=== PATIENT | male | born 1995 | race Caucasian/White ===

== ENCOUNTER 2020-08-29 10:18 | Emergency (ER) | payer OTHER ==
[2020-08-29 10:35] VITALS: BMI 26.1
[2020-08-29] MEDS ORDERED: SODIUM CHLORIDE 1,000 ML IV STA ×2 (11:32→13:00)
[2020-08-29 12:24] LABS: BASO % 0.6 % (0-2.0); EOS % 0.5 % (0-4.5); HEMATOCRIT 48.2 % (35.4-49); HEMOGLOBIN 16.6 GM/dL (11.7-16.9); LYMPH % 12.6 % (8-40); MCH 29.4 pg (25.7-33.7); MCHC 34.3 g/dl (32.0-35.9); MEAN CELL VOLUME 85.7 fl (80-96); MEAN PLT VOLUME 9.8 fl (7.5-11.1); MONO % 13.7 % (3.8-10.2); NEUT % 72.6 % (42.8-82.8); PLATELET COUNT 172 K/MM3 (134-434); RBC 5.63 M/mm3 (4.00-5.60); RDW 12.4 % (11.9-15.9); WHITE BLOOD COUNT 7.5 K/mm3 (4.0-10.0)
[2020-08-29 12:25] LABS: URINE APPEARANCE CLEAR; URINE BILIRUBIN NEGATIVE (NEGATIVE); URINE COLOR YELLOW; URINE GLUCOSE (UA) 3+ (NEGATIVE); URINE KETONE 1+ (NEGATIVE); URINE LEUK ESTERASE NEGATIVE (NEGATIVE); URINE NITRITE NEGATIVE (NEGATIVE); URINE PROTEIN NEGATIVE (NEGATIVE); URINE UROBILINOGEN 0.2 mg/dL (0.2-1.0)
[2020-08-29 12:45] LABS: POTASSIUM 4.3 mmol/L (3.5-5.1)
[2020-08-29 12:47] LABS: ALBUMIN 4.3 g/dl (3.4-5.0); CALCIUM 10.3 mg/dL (8.5-10.1)
[2020-08-29 12:51] LABS: CREATININE 0.9 mg/dL (0.55-1.3)
[2020-08-29 12:52] LABS: BILIRUBIN,TOTAL 0.9 mg/dL (0.2-1); TOT PROT 8.8 g/dl (6.4-8.2)
[2020-08-29] MEDS ORDERED: INSULIN (NOVOLOG) ASPART 100 UNITS/ML 10ML VIAL SQ ONE (13:00)
[2020-08-29] MEDS ORDERED: BAMLANIVIMAB 700 MG, ETESEVIMAB 1,400 MG in SODIUM CHLORIDE 250 ML IVPB ONE (13:14)
[2020-08-29 16:00] VITALS: BP 117/78; PULSE 98; TEMP 97.4
== END 2020-08-29 15:58 | disposition home or self-care (01) ==
LOC: JER 10:18
PROC: 3E033GC Introduction of Other Therapeutic Substance into Peripheral Vein, Percutaneous Approach (ICD-10-PCS; principal; 2020-08-29)
PROC: 3E023GC Introduction of Other Therapeutic Substance into Muscle, Percutaneous Approach (ICD-10-PCS; principal; 2020-08-29)
PROC: 3E0337Z Introduction of Electrolytic and Water Balance Substance into Peripheral Vein, Percutaneous Approach (ICD-10-PCS; principal; 2020-08-29)
DX: U07.1 COVID-19 (principal)
CPT/HCPCS: 36415; 80053; 81003; 82010; 82962; 83605; 85025; 99284-25; M0239; Q0239; Q0245

== ENCOUNTER 2021-05-27 19:54 | Emergency (ER) | payer OTHER ==
[2021-05-27 20:33] VITALS: BP 133/82; PULSE 102; TEMP 97.6; BMI 26.7
[2021-05-27] MEDS ORDERED: ACETAMINOPHEN 1000 MG/100 ML VIAL IVPB ONE (21:08)
[2021-05-27] MEDS ORDERED: LACTATED RINGERS SOLUTION 1000 ML INFUS.BAG IV ONE ×2 (21:08→22:49)
[2021-05-27] MEDS ORDERED: ONDANSETRON 4 MG/2 ML VIAL IVPUSH ONE (21:08)
[2021-05-27] MEDS ORDERED: ACETAMINOPHEN INJECTION 100 ML IVPB ONE (21:20)
[2021-05-27] MEDS ORDERED: ONDANSETRON 4 MG/2 ML VIAL ONE (21:21)
[2021-05-27 21:54] LABS: BASO % 0.2 % (0-2.0); EOS % 0.1 % (0-4.5); HEMATOCRIT 46.5 % (35.4-49); LYMPH % 4.9 % (8-40); MCH 29.1 pg (25.7-33.7); MCHC 34.4 g/dl (32.0-35.9); MEAN CELL VOLUME 84.8 fl (80-96); MEAN PLT VOLUME 10.7 fl (7.5-11.1); MONO % 9.9 % (3.8-10.2); NEUT % 84.9 % (42.8-82.8); PLATELET COUNT 210 10^3/uL (134-434); RBC 5.48 M/mm3 (4.00-5.60); RDW 12.6 % (11.9-15.9); WHITE BLOOD COUNT 18.1 K/mm3 (4.0-10.0)
[2021-05-27 22:00] LABS: BLOOD UREA NITROGEN 22.1 mg/dL (7-18); CALCIUM 9.4 mg/dL (8.5-10.1)
[2021-05-27 22:03] LABS: CREATININE 0.8 mg/dL (0.55-1.3)
[2021-05-27 22:05] LABS: TOT PROT 7.9 g/dl (6.4-8.2)
[2021-05-28] MEDS ORDERED: FAMOTIDINE 10 MG TABLET PO ONE (00:55)
[2021-05-28] MEDS ORDERED: SUCRALFATE 1 GM TABLET (FP) PO ONE (00:55)
[2021-05-28] MEDS ORDERED: MAG HYDROX/AL HYDROX/SIMETH 30 ML UNIT-DOSE CUP PO ONE (00:55)
[2021-05-28] MEDS ORDERED: FAMOTIDINE 10 MG TABLET ONE (01:00)
[2021-05-28] MEDS ORDERED: SUCRALFATE 1 GM TABLET (FP) ONE (01:01)
[2021-05-28] MEDS ORDERED: MAG HYDROX/AL HYDROX/SIMETH 30 ML UNIT-DOSE CUP ONE (01:01)
[2021-05-28 02:22] LABS: VENOUS BASE EXCESS 1.9 mmol/L (-2-2); VENOUS O2 SATURATION 90.6 % (70-80); VENOUS PCO2 44.7 mmHg (38-52); VENOUS PH 7.402 (7.310-7.410)
== END 2021-05-28 02:47 | disposition home or self-care (01) ==
LOC: JER 19:54
PROC: 3E033GC Introduction of Other Therapeutic Substance into Peripheral Vein, Percutaneous Approach (ICD-10-PCS; principal; 2021-05-27)
DX: R11.2 Nausea with vomiting, unspecified (principal)
CPT/HCPCS: 36415; 80053; 82010; 82803; 85025; 87804; 96374; 96375; 99284-25; C9803; J0131; U0003; U0005

== ENCOUNTER 2021-05-28 23:11 | Inpatient (IN) | payer OTHER ==
[2021-05-29] MEDS ORDERED: LACTATED RINGERS SOLUTION 1000 ML INFUS.BAG IV ONE ×2 (00:40→02:16)
[2021-05-29] MEDS ORDERED: ACETAMINOPHEN 1000 MG/100 ML VIAL IVPB ONE (00:40)
[2021-05-29] MEDS ORDERED: METOCLOPRAMIDE HCL INJECTION 10 MG/2 ML VIAL IVPUSH ONE (00:40)
[2021-05-29] MEDS ORDERED: FAMOTIDINE 20 MG/50 ML IVPB 50 ML IVPB ONE (00:40)
[2021-05-29] MEDS ORDERED: METOCLOPRAMIDE HCL INJECTION 10 MG/2 ML VIAL ONE (00:49)
[2021-05-29] MEDS ORDERED: ACETAMINOPHEN INJECTION 100 ML IVPB ONE (00:49)
[2021-05-29 00:55] LABS: BASO % 0.5 % (0-2.0); HEMOGLOBIN 15.6 GM/dL (11.7-16.9); LYMPH % 8.8 % (8-40); MCH 28.7 pg (25.7-33.7); MCHC 33.9 g/dl (32.0-35.9); MEAN CELL VOLUME 84.6 fl (80-96); MEAN PLT VOLUME 9.8 fl (7.5-11.1); MONO % 19.2 % (3.8-10.2); NEUT % 71.5 % (42.8-82.8); PLATELET COUNT 207 10^3/uL (134-434); RBC 5.44 M/mm3 (4.00-5.60); RDW 12.4 % (11.9-15.9); WHITE BLOOD COUNT 9.8 K/mm3 (4.0-10.0)
[2021-05-29 01:15] LABS: CALCIUM 9.1 mg/dL (8.5-10.1)
[2021-05-29 01:16] LABS: ALBUMIN 3.7 g/dl (3.4-5.0)
[2021-05-29 01:18] LABS: CREATININE 0.9 mg/dL (0.55-1.3)
[2021-05-29 01:20] LABS: BILIRUBIN,TOTAL 4.1 mg/dL (0.2-1); TOT PROT 7.6 g/dl (6.4-8.2)
[2021-05-29] MEDS ORDERED: FAMOTIDINE/PF 20 MG/2 ML VIAL IVPB ONE (01:30)
[2021-05-29] MEDS ORDERED: FAMOTIDINE 20 MG/50 ML IVPB 20 MG/50 ML MG IVPB ONE (01:44)
[2021-05-29 02:32] LABS: URINE APPEARANCE CLEAR; URINE BILIRUBIN NEGATIVE (NEGATIVE); URINE COLOR YELLOW; URINE GLUCOSE (UA) 3+ (NEGATIVE); URINE KETONE 4+ (NEGATIVE); URINE LEUK ESTERASE NEGATIVE (NEGATIVE); URINE NITRITE NEGATIVE (NEGATIVE); URINE PROTEIN TRACE (NEGATIVE); URINE UROBILINOGEN 0.2 mg/dL (0.2-1.0)
[2021-05-29] MEDS ORDERED: INSULIN REGULAR HUMAN 100 UNITS/ML *VIAL IVPUSH ONE (04:01)
[2021-05-29] MEDS: SODIUM CHLORIDE 1,000 ML IV SCH (04:39)
[2021-05-29 05:29] LABS: INR 1.24 (0.83-1.09); PROTHROMBIN TIME (PATIENT) 14.5 SEC (9.7-13.0)
[2021-05-29 05:32] LABS: ACTIVATED PTT 21.8 SECONDS (25.2-36.5)
[2021-05-29 07:23] LABS: BILIRUBIN,DIRECT 0.5 mg/dL (0.0-0.2)
[2021-05-29] MEDS: INSULIN SLIDING SCALE (NOVOLOG) 1 VIAL SQ SCH ×4 (07:50→21:12)
[2021-05-29 07:56] LABS: BLOOD UREA NITROGEN 21.5 mg/dL (7-18); CALCIUM 8.1 mg/dL (8.5-10.1)
[2021-05-29 07:57] LABS: ALBUMIN 3.4 g/dl (3.4-5.0)
[2021-05-29 08:00] LABS: CREATININE 0.6 mg/dL (0.55-1.3)
[2021-05-29 08:01] LABS: BILIRUBIN,TOTAL 3.6 mg/dL (0.2-1); TOT PROT 6.8 g/dl (6.4-8.2)
[2021-05-29 08:25] LABS: BASO % 0.5 % (0-2.0); EOS % 0.2 % (0-4.5); HEMATOCRIT 42.2 % (35.4-49); HEMOGLOBIN 14.6 GM/dL (11.7-16.9); LYMPH % 8.8 % (8-40); MCH 29.2 pg (25.7-33.7); MCHC 34.5 g/dl (32.0-35.9); MEAN CELL VOLUME 84.5 fl (80-96); MEAN PLT VOLUME 10.3 fl (7.5-11.1); MONO % 18.8 % (3.8-10.2); NEUT % 71.7 % (42.8-82.8); PLATELET COUNT 188 10^3/uL (134-434); RBC 4.99 M/mm3 (4.00-5.60); RDW 12.4 % (11.9-15.9); WHITE BLOOD COUNT 9.8 K/mm3 (4.0-10.0)
[2021-05-29 11:46] VITALS: BMI 26.5
[2021-05-30] MEDS: SODIUM CHLORIDE 1,000 ML IV SCH ×2 (04:40→14:35)
[2021-05-30] MEDS: INSULIN SLIDING SCALE (NOVOLOG) 1 VIAL SQ SCH ×4 (07:09→21:11)
[2021-05-30 10:31] LABS: HEMATOCRIT 42.6 % (35.4-49); HEMOGLOBIN 14.4 GM/dL (11.7-16.9); MCH 28.7 pg (25.7-33.7); MCHC 33.7 g/dl (32.0-35.9); MEAN PLT VOLUME 9.8 fl (7.5-11.1); PLATELET COUNT 197 10^3/uL (134-434); RBC 5.01 M/mm3 (4.00-5.60); RDW 12.1 % (11.9-15.9); WHITE BLOOD COUNT 7.4 K/mm3 (4.0-10.0)
[2021-05-30 10:57] LABS: CALCIUM 8.5 mg/dL (8.5-10.1)
[2021-05-30 10:58] LABS: BLOOD UREA NITROGEN 16.6 mg/dL (7-18); MAGNESIUM 2.4 mg/dL (1.8-2.4)
[2021-05-30 11:01] LABS: CREATININE 0.4 mg/dL (0.55-1.3); PHOSPHOROUS 2.6 mg/dL (2.5-4.9)
[2021-05-30 11:02] LABS: BILIRUBIN,TOTAL 1.8 mg/dL (0.2-1); TOT PROT 6.3 g/dl (6.4-8.2)
[2021-05-30] MEDS: KCL 10 MEQ IVPB 10 MEQ/100 ML INFUS.BAG IVPB SCH ×3 (14:32→17:00)
[2021-05-31] MEDS: SODIUM CHLORIDE 1,000 ML IV SCH ×2 (06:13→07:08)
[2021-05-31] MEDS: INSULIN SLIDING SCALE (NOVOLOG) 1 VIAL SQ SCH ×4 (06:14→21:14)
[2021-05-31 08:57] LABS: BLOOD UREA NITROGEN 18.5 mg/dL (7-18); CALCIUM 8.4 mg/dL (8.5-10.1); MAGNESIUM 2.4 mg/dL (1.8-2.4)
[2021-05-31 09:00] LABS: CREATININE 0.5 mg/dL (0.55-1.3); HEMATOCRIT 42.4 % (35.4-49); HEMOGLOBIN 14.2 GM/dL (11.7-16.9); MCH 28.9 pg (25.7-33.7); MCHC 33.5 g/dl (32.0-35.9); MEAN CELL VOLUME 86.2 fl (80-96); MEAN PLT VOLUME 10.4 fl (7.5-11.1); PHOSPHOROUS 3.2 mg/dL (2.5-4.9); PLATELET COUNT 206 10^3/uL (134-434); RBC 4.92 M/mm3 (4.00-5.60); RDW 12.3 % (11.9-15.9); WHITE BLOOD COUNT 8.8 K/mm3 (4.0-10.0)
[2021-05-31 09:02] LABS: BILIRUBIN,TOTAL 1.4 mg/dL (0.2-1); TOT PROT 6.5 g/dl (6.4-8.2)
[2021-05-31] MEDS ORDERED: SODIUM CHLORIDE 0.9%/KCL 20 MEQ/1,000 ML INFUS.BAG IV SCH ×2 (09:04→09:15)
[2021-05-31] MEDS: D5-1/2NS+40 MEQ KCL - 40 MEQ/1,000 ML INFUS.BAG IV SCH (11:00)
[2021-05-31] MEDS ORDERED: INSULIN (NOVOLOG) ASPART 100 UNITS/ML 10ML VIAL ONE (21:10)
[2021-06-01] MEDS: INSULIN SLIDING SCALE (NOVOLOG) 1 VIAL SQ SCH ×4 (06:18→21:23)
[2021-06-01] MEDS: D5-1/2NS+40 MEQ KCL - 40 MEQ/1,000 ML INFUS.BAG IV SCH ×2 (06:22→10:02)
[2021-06-01] MEDS ORDERED: INSULIN (NOVOLOG) ASPART 100 UNITS/ML 10ML VIAL ONE (07:31)
[2021-06-01 08:40] LABS: HEMATOCRIT 45.3 % (35.4-49); MCH 28.4 pg (25.7-33.7); MCHC 33.1 g/dl (32.0-35.9); MEAN CELL VOLUME 85.8 fl (80-96); MEAN PLT VOLUME 10.1 fl (7.5-11.1); PLATELET COUNT 212 10^3/uL (134-434); RBC 5.27 M/mm3 (4.00-5.60); RDW 12.8 % (11.9-15.9); WHITE BLOOD COUNT 11.4 K/mm3 (4.0-10.0)
[2021-06-01 08:58] LABS: BLOOD UREA NITROGEN 16.4 mg/dL (7-18); CALCIUM 8.7 mg/dL (8.5-10.1)
[2021-06-01 08:59] LABS: MAGNESIUM 2.2 mg/dL (1.8-2.4)
[2021-06-01 09:01] LABS: CREATININE 0.6 mg/dL (0.55-1.3); PHOSPHOROUS 2.7 mg/dL (2.5-4.9)
[2021-06-01 09:03] LABS: BILIRUBIN,TOTAL 1.2 mg/dL (0.2-1); TOT PROT 6.8 g/dl (6.4-8.2)
[2021-06-01] MEDS ORDERED: AMINO ACIDS 4.25%/D5W 1,000 ML IV SCH (10:30)
[2021-06-01] MEDS ORDERED: D5-LR+20 MEQ KCL - 20 MEQ/1,000 ML INFUS.BAG IV SCH ×3 (10:45)
[2021-06-01] MEDS ORDERED: D5-NS + 20 MEQ KCL - 20 MEQ/1,000 ML INFUS.BAG IV SCH (11:00)
[2021-06-01] MEDS: POTASSIUM CHLORIDE 40 MEQ in AMINO ACIDS 4.25%/D5W 2,000 ML IV SCH (14:31)
[2021-06-02] MEDS: INSULIN SLIDING SCALE (NOVOLOG) 1 VIAL SQ SCH ×4 (06:18→22:16)
[2021-06-02] MEDS ORDERED: INSULIN (NOVOLOG) ASPART 100 UNITS/ML 10ML VIAL ONE ×3 (06:26→21:11)
[2021-06-02] MEDS ORDERED: INSULIN (LEVEMIR) 100 UNITS/ML UNITS SQ ONE (06:28)
[2021-06-02 09:18] LABS: HEMATOCRIT 48.6 % (35.4-49); HEMOGLOBIN 16.6 GM/dL (11.7-16.9); MCHC 34.2 g/dl (32.0-35.9); MEAN CELL VOLUME 84.6 fl (80-96); MEAN PLT VOLUME 9.3 fl (7.5-11.1); PLATELET COUNT 252 10^3/uL (134-434); RBC 5.74 M/mm3 (4.00-5.60); RDW 12.5 % (11.9-15.9); WHITE BLOOD COUNT 11.9 K/mm3 (4.0-10.0)
[2021-06-02] MEDS: FAMOTIDINE 20 MG/50 ML IVPB 20 MG/50 ML MG IVPB SCH ×2 (09:41→21:26)
[2021-06-02 10:00] LABS: ALBUMIN 3.3 g/dl (3.4-5.0)
[2021-06-02 10:02] LABS: CALCIUM 9.4 mg/dL (8.5-10.1)
[2021-06-02 10:03] LABS: BLOOD UREA NITROGEN 24.2 mg/dL (7-18); MAGNESIUM 2.3 mg/dL (1.8-2.4); PHOSPHOROUS 3.5 mg/dL (2.5-4.9)
[2021-06-02 10:04] LABS: CREATININE 0.7 mg/dL (0.55-1.3)
[2021-06-02 10:05] LABS: BILIRUBIN,TOTAL 1.3 mg/dL (0.2-1); TOT PROT 7.7 g/dl (6.4-8.2)
[2021-06-02] MEDS ORDERED: MAGNESIUM SULF 50% (8.12 MEQ/2 ML-1 GM VIAL) IVPB ONE (12:30)
[2021-06-02] MEDS ORDERED: Insulin (LOG) Aspart 100 UNITS/ML VIAL SQ SCH (16:30)
[2021-06-02] MEDS ORDERED: INSULIN (LEVEMIR) 100 UNITS/ML UNITS SQ SCH (16:30)
[2021-06-02] MEDS: Insulin (LOG) Aspart 100 UNITS/ML VIAL SQ SCH (16:58)
[2021-06-02] MEDS: POTASSIUM CHLORIDE 40 MEQ in AMINO ACIDS 4.25%/D5W 2,000 ML IV SCH (17:15)
[2021-06-02] MEDS: INSULIN (LEVEMIR) 100 UNITS/ML UNITS SQ SCH (22:17)
[2021-06-03] MEDS: INSULIN SLIDING SCALE (NOVOLOG) 1 VIAL SQ SCH ×2 (06:31→12:10)
[2021-06-03] MEDS: INSULIN (LEVEMIR) 100 UNITS/ML UNITS SQ SCH (06:31)
[2021-06-03] MEDS: Insulin (LOG) Aspart 100 UNITS/ML VIAL SQ SCH (06:32)
[2021-06-03] MEDS ORDERED: INSULIN (NOVOLOG) ASPART 100 UNITS/ML 10ML VIAL ONE (06:46)
[2021-06-03] MEDS ORDERED: INSULIN (LEVEMIR) 100 UNITS/ML UNITS SQ ONE ×2 (07:35→12:09)
[2021-06-03] MEDS ORDERED: Insulin (LOG) Aspart 100 UNITS/ML VIAL SQ SCH (09:00)
[2021-06-03 09:05] LABS: HEMATOCRIT 45.8 % (35.4-49); HEMOGLOBIN 15.7 GM/dL (11.7-16.9); MCHC 34.2 g/dl (32.0-35.9); MEAN CELL VOLUME 84.9 fl (80-96); MEAN PLT VOLUME 10.1 fl (7.5-11.1); PLATELET COUNT 241 10^3/uL (134-434); RDW 12.2 % (11.9-15.9); WHITE BLOOD COUNT 10.9 K/mm3 (4.0-10.0)
[2021-06-03 09:22] LABS: ALBUMIN 2.9 g/dl (3.4-5.0); BLOOD UREA NITROGEN 24.6 mg/dL (7-18); CALCIUM 8.8 mg/dL (8.5-10.1)
[2021-06-03 09:23] LABS: MAGNESIUM 1.9 mg/dL (1.8-2.4)
[2021-06-03 09:25] LABS: BILIRUBIN,TOTAL 1.6 mg/dL (0.2-1); CREATININE 0.8 mg/dL (0.55-1.3); PHOSPHOROUS 4.1 mg/dL (2.5-4.9)
[2021-06-03 09:27] LABS: TOT PROT 6.9 g/dl (6.4-8.2)
[2021-06-03] MEDS ORDERED: POTASSIUM CHLORIDE TABS 20 MEQ TABLET.ER (FP) PO ONE (09:45)
[2021-06-03] MEDS: INSULIN (NOVOLOG) ASPART 100 UNITS/ML 10ML VIAL SQ SCH ×2 (12:13→12:14)
[2021-06-03] MEDS: FAMOTIDINE 20 MG/50 ML IVPB 20 MG/50 ML MG IVPB SCH (12:14)
[2021-06-03 15:42] VITALS: BP 108/61; PULSE 99; TEMP 98.5
[2021-06-03] MEDS ORDERED: INSULIN (LEVEMIR) 100 UNITS/ML UNITS SQ SCH (22:00)
== END 2021-06-03 16:32 | disposition home or self-care (01) | DRG 247 ==
LOC: JER 23:11 → JERBED 05-29 02:56 → J8W 05-29 10:42
PROVIDERS: ADMIT Internal Medicine; ATTEND Internal Medicine
PROC: 0D9670Z Drainage of Stomach with Drainage Device, Via Natural or Artificial Opening (ICD-10-PCS; principal; 2021-05-29)
DX: K56.609 Unspecified intestinal obstruction, unspecified as to partial versus complete obstruction (principal); E80.6 Other disorders of bilirubin metabolism; E88.89 Other specified metabolic disorders; E87.1 Hypo-osmolality and hyponatremia; E11.65 Type 2 diabetes mellitus with hyperglycemia
CPT/HCPCS: 36415; 71045-TC-FY; 74019-TC-FY; 74177-TC; 74250-TC-FY; 76705-TC; 80053; 81003; 82010; 82248; 82962; 83036; 83615; 83690; 83735; 84100; 84439; 84443; 85025; 85027; 85610; 85730; 86850; 86900; 86901; 87040; 93005; 93010; 99285-25; C9803; J0131; U0003; U0005